=== PATIENT | female | born 1955 | race Caucasian/White ===

== ENCOUNTER 2016-10-26 12:11 | Emergency (ER) | payer OTHER ==
--- NOTE | ~2016-10-26 | CT71 ---
[facility] A Service of [facility] RADIOLOGY TEXT RESULTS PATIENT: OSCAR HUDSON LOCATION: [facility] : 55 UNIT #: [id number] AGE: [address]: Marcos Villalobos MD SEX: F ORDER DR: [id number] [address] [place], [place] [address] [id number] MR#: [id number] Acc #: [id number] NAME: OSCAR HUDSON : 1955 SEX: F STUDY DATE/TIME: 10/26/2016 12:28 UNIT: [facility] ROOM: STUDY DESCRIPTION: CT Head Wo Contrast Attending Physician: Marcos Villalobos M.D. Ordering Physician: Marcos Villalobos M.D. MEDICAL IMAGING REPORT This report is preliminary unless electronic signature is present EXAM CT head without contrast. INDICATIONS Headache for [address] head without contrast. This CT exam was performed with one or more of the following radiation dose reduction techniques: automatic exposure control, adjustment of mA and/or kV according to patient size, and iterative reconstruction. COMPARISON CT head dated 05/07/2016. FINDINGS Axial noncontrast images were obtained from the skull base to the vertex. Ventricular size and configuration are normal. There is no evidence of acute infarct or hemorrhage. There are no extra-axial fluid collections. No mass lesion or mass effect is seen. There are no skull fractures. Extraaxial mass associated with cavernous sinus is unchanged from prior study. Old lacunar infarct in the left thalamus is unchanged. IMPRESSION Normal noncontrast head CT. Dictated by... Kaiden Rivera M.D. THIS IS AN ELECTRONICALLY VERIFIED REPORT Kaiden Rivera M.D. at 10/30/2016 9:40 AM RPC/huey [facility] A Service [facility] RADIOLOGY TEXT RESULTS PATIENT: OSCAR HUDSON LOCATION: [facility] : 55 UNIT #: [id number] AGE: [address]: Marcos Villalobos MD SEX: F ORDER DR: TD: 10/26/2016 14:22 JOB #: [id number] MEDICAL IMAGING REPORT Page 1 of 1 COPY
[~2016-10-26 12:11] MED LIST: ACETAMINOPHEN PO; ADVAIR DISKU1 250/50 INH; ADVAIR PO; ALBUTEROL17 GM INH; AMITRIPTYLINE H25 MG PO; AMITRYPTYLINE PO; ASPERDRINK81 MG PO; ASPIRIN EC81 M1 PO; ASPIRIN ENTERI325 M1 DOB; ASPIRIN PO; ASPIRIN325 M1 PO; ASPIRIN81 M2 PO; ASPIRIN81 MG PO; ASPIRINEC PO; AZITHROMYCIN250 MG PO; BAYER CHEWABLE81 MG PO; BISACODYL5 MG PO; CALCIUM 500 + D1 TAB PO; CALCIUM 500 +1 EAC2 PO; CALCIUM 500 +1 EAC5 PO; CALTRATE 600+D PO; CERTAGEN PO; CLOPIDOGREL75 MG PO; COATED ASPIRIN325 M1 PO; COLACE PO; COZAAR PO; COZAAR25 MG PO; DARVOCET-N 1001 TAB PO; DECADRON PO; DEXAMETHASONE1 MG PO; DOC-Q-LACE100 MG PO; DOCU SOFT100 M1 PO; DOCUSATE SODIU100 MG PO; DULCOLAX5 MG PO; ECOTRIN81 M1 PO; FAMOTIDINE PO; FLEXERIL10 M1 PO; HYDROCHLOROTH12.5 M1 PO; HYDROCODON-ACE1 EAC7 PO; HYDROCODON-ACE1 EACH PO; HYDROXYZINE HCL25 M1 PO; IMDUR-ER60 M1 PO; IMDUR-ER60 MG DOB; IMDUR-ER60 MG PO; IMDUR30 MG PO; INDOMETHACIN50 MG PO; KETOPROFEN PO; KLONOPIN1 MG PO; LEVAQUIN PO; LIPITOR40 MG PO; LISINOPRIL5 MG PO; LOPRESSOR PO; LORTAB 5/500 TA1 TA1 PO; LOSARTAN POTASS50 MG PO; MACROBID100 MG PO; MEDROL4 MG/DOSE- PO; MELOXICAM15 MG PO; METOPROLOL SUCC25 MG PO; METOPROLOL TAR25 MG PO; METOPROLOL TART25 MG PO; MICROZIDE12.5 M1 PO; MOBIC PO; MOBIC15 MG PO; MOTRIN100 MG PO; MOTRIN600 MG PO; NAPROSYN250 M1 PO; NAPROSYN500 MG PO; NAPROXEN SODIU275 MG PO; NICOTINE TRANSDE7 MG EXT; NITRODISC0.4 MG SL; NITROGLYGERIN0.4 MG SL; NITROSTAT0.4 MG SL; NORCO 5/325 TAB1 TAB PO; NORVASC PO; NORVASC10 MG PO; PATIENT'S PHARMACY; PERCOCET 5-3251 TAB PO; PLAVIX PO; PRAVACHOL PO; PRAVACHOL20 MG PO; PRAVASTATIN SOD20 MG PO; PRAVASTATIN SOD40 MG PO; PREDNISONE5 M1 DOB; PRILOSEC20 MG PO; RANEXA1000 MG PO; RANEXA500 MG PO; REGLAN10 MG PO; ROBAXIN 750750 MG DOB; SENEXON-S TABL1 EACH PO; SENNA S TABLET1 TAB PO; SENNA8.6 M2 PO; SENNA8.6 M3 PO; SIMVASTATIN5 MG; SOF-LAX100 MG PO; SYMBICORT80 INH; TESSALON200 MG PO; TYLENOL #3 PO; TYLOX1 CAP 5/50 PO; VICODIN 5/500 T1 TAB PO; ZITHROMAX1 G/PKT PO; ZOCOR PO; ZOCOR20 MG PO; ZOFRAN PO; ZYPREXA2.5 MG PO
== END 2016-10-26 14:36 | disposition home or self-care (01) ==
LOC: CED 12:11
DX: R51 Headache (principal); G89.29 Other chronic pain; F32.9 Major depressive disorder, single episode, unspecified; E78.5 Hyperlipidemia, unspecified; F17.200 Nicotine dependence, unspecified, uncomplicated; Z86.73 Personal history of transient ischemic attack (TIA), and cerebral infarction without residual deficits
CPT/HCPCS: 70450; 99284

== ENCOUNTER 2017-03-15 10:58 | Observation (INO) | payer OTHER ==
[~2017-03-15] VITALS: Ht 149.9 cm; Wt 46.6 kg
--- NOTE | ~2017-03-15 | EKG ---
PATIENT: SOCAR HUDSON UNIT #: [id number] Ventricular Rate: 43 BPM Atrial Rate: 43 BPM P-R Interval: 160 ms QRS Duration: 72 ms Q-T Interval: 460 ms QTC Calculation(Bezet): 388 ms P [place]: 55 degrees Calculated R [place]: 36 degrees Calculated T [place]: 59 degrees Diagnosis Line: Marked sinus bradycardia Diagnosis Line: Abnormal ECG Diagnosis Line: When compared with ECG of 16-JUL-2016 11:13, Diagnosis Line: No significant change was found Diagnosis Line: Confirmed by JACKI LUGO MD ([id number]) on 03/15/2017 Diagnosis Line: 5:31:39 PM INTERPRETING MD: BRITTNEY UPTON
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
--- NOTE | ~2017-03-15 | DS ---
Unit #: [id number] #: [id number] Patient: OSCAR HUDSON [id number] [facility]. [address] [address] [id number] I MR#: [id number] NAME: OSCAR HUDSON ROOM: 314 Age: 62 Sex: F Admission Date: 03/15/2017 : 1955 Discharge Date: 03/16/2017 Attending Physician: Norman Marion M.D. Primary Care Physician: Generic Doctor Not In System DISCHARGE SUMMARY PRINCIPAL DISCHARGE DIAGNOSES 1. Transient ischemic attack. 2. History of cerebrovascular accident in the past. 3. History of pontine infarct. 4. History of the left cavernous sinuses extending back along the petroclinoid ligament. 5. Hypertension. 6. Hyperlipidemia. 7. Coronary artery disease status post stent placement x3. IMAGING STUDIES CT scan of the head and MRI. HOSPITAL COURSE This is a 62-year-old female who presented to the emergency room with left-sided weakness of her face as well as some left upper and lower extremity but she has no weakness. She had no nausea, vomiting, chills. No headaches. She had a CT scan of the head done which showed no acute infarct. MRI of the brain with and without contrast showed the left cavernous sinus meningioma which has been stable from the previous study as well as pontine infarct which is old. No acute infarcts were noted. The patient has clinically no evidence of any neurological weaknesses or any CVA at this point. However, the patient does have elevated blood pressure and, on her lipid study, did show LDL is 235. It seems like she has not been very compliant with her medicines. I am not sure she has been taking her Plavix and aspirin either at home. The patient is stable at this time to be discharged home. MEDICATION AT DISCHARGE 1. Losartan 50 mg daily. 2. Aspirin 81 mg daily. 3. Metoprolol 25 mg b.i.d. 4. Plavix 75 mg daily. 5. Atorvastatin 40 mg daily. 6. Meloxicam 7.5 mg daily. 7. Hydroxyzine 25 mg daily. CONDITION AT DISCHARGE Stable. DISPOSITION To home. Note, I had a lengthy discussion with the patient about need for taking Unit #: [id number] #: [id number] Patient: YOUNG,OSCAR all her medications regularly including her blood pressure control and her lipid control. She will follow up with primary care physician as an outpatient in one week. I discussed with patient to make an appointment with Dr. Galloway for further studies as an outpatient. Thanks again for consultation. Dictated by... Gianna Gordon/saida TD: 03/19/2017 08:17 JOB #: [id number] DISCHARGE SUMMARY Page 1 of 1 X Norman Marion MD X DISCHARGE SUMMARY
--- NOTE | ~2017-03-15 | CR72 ---
[facility] A Service of [facility] RADIOLOGY TEXT RESULTS PATIENT: OSCAR HUDSON LOCATION: [facility] 314-01 : 55 UNIT #: [id number] AGE: [address]: Norman Marion MD SEX: F ORDER DR: [id number] [facility] [address] [place], [place] [address] [id number] I MR#: [id number] Acc #: [id number] NAME: OSCAR HUDSON : 1955 SEX: F STUDY DATE/TIME: 03/15/2017 11:32 [facility] STUDY DESCRIPTION: CR Chest Single View Portable Attending Physician: Dionna Rosales M.D. Ordering Physician: Abdifatah Doyle M.D. Primary Care Physician: Generic Doctor Not In System MEDICAL IMAGING REPORT This report is preliminary unless electronic signature is present EXAM AP radiograph of the chest, 03/15/2017 HISTORY Numbness. Left-sided numbness started this a.m. Two prior strokes. Two DC's. COPD, brain tumor. Heart stents x3 TECHNIQUE AP radiograph of the chest is presented. Comparison 07/16/2016. FINDINGS Degenerative changes in the spine. Old healed posterolateral left rib fractures. Stable appearance. No acute-appearing bony abnormality. Stable cardiac enlargement. Evidence of prior coronary artery stenting. The lungs are hyperinflated suggesting underlying chronic airway disease. There is no evidence of acute infectious or inflammatory disease, pleural effusion or pneumothorax. No suspicious nodule. Dictated by... Kulwinder Austin M.D. THIS IS AN ELECTRONICALLY VERIFIED REPORT Kulwinder Austin M.D. at 03/18/2017 12:58 PM RADHA/danii TD: 03/16/2017 00:14 JOB #: [id number] MEDICAL IMAGING REPORT Page 1 of 1 COPY
--- NOTE | ~2017-03-15 | CT71 ---
[facility] A Service of [facility] & [facility] RADIOLOGY TEXT RESULTS PATIENT: OSCAR HUDSON LOCATION: [facility] 314-01 : 55 UNIT #: [id number] AGE: [address]: Norman Marion MD SEX: F ORDER DR: [id number] [facility] [address] [place], [place] [address] [id number] I MR#: [id number] Acc #: [id number] NAME: OSCAR HUDSON : 1955 SEX: F STUDY DATE/TIME: 03/15/2017 11:59 UNIT: A PCU ROOM: [facility] STUDY DESCRIPTION: CT Head Wo Contrast Attending Physician: Dionna Rosales M.D. Ordering Physician: Abdifatah Doyle M.D. Primary Care Physician: Generic Doctor Not In System MEDICAL IMAGING REPORT This report is preliminary unless electronic signature is present EXAM CT of the head without contrast. INDICATIONS Left-sided numbness and weakness. This started this morning. This patient has a history of a meningioma centered in the left cavernous sinus. TECHNIQUE Axial CT images were obtained from the vertex of the skull through the skull base. No intravenous contrast material was administered. This CT exam was performed with one or more of the following radiation dose reduction techniques: automatic exposure control, adjustment of mA and/or kV according to patient size, and iterative reconstruction. COMPARISON Comparison made to prior exam from October 26, 2016. FINDINGS No acute intracranial hemorrhage is identified. Brain parenchyma is normal in attenuation with no focal areas of decreased attenuation seen. There is no midline shift or mass effect. No new areas of decreased attenuation are identified. Patient does have an area of decreased attenuation within the ira which appears stable when compared to the October 26, 2016, examination. Again, this patient has a known mass centered on the left cavernous sinus, favored to be a meningioma. Based upon prior imaging, its appearance is stable when compared to the October 26, 2016, examination. No new lesions are seen. Patient does have deformity of the nasal bones which appears to be chronic. No acute fractures are identified. No focal soft tissue abnormalities are seen. IMPRESSION 1. No acute intracranial process is identified. Specifically, there is no evidence of acute hemorrhage or acute infarct. Patient has a STS. [facility] A Service of [facility] & [facility] RADIOLOGY TEXT RESULTS PATIENT: OSCAR HUDSON LOCATION: [facility] 314-01 : 55 UNIT #: [id number] AGE: [address]: Norman Marion MD SEX: F ORDER DR: known meningioma which is centered on the left cavernous sinus, its appearance I think is stable when compared to the prior studies. No new lesions are seen on today's examination. 2. Old nasal bone fractures. See the body of the report for any other additional incidental findings. Dictated by... Lissett Espinoza M.D. THIS IS AN ELECTRONICALLY VERIFIED REPORT Lissett Espinoza M.D. at 03/27/2017 8:21 AM PABLO/prateek TD: 03/16/2017 00:06 JOB #: [id number] MEDICAL IMAGING REPORT Page 1 of 1 COPY
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
--- NOTE | ~2017-03-15 | MR17 ---
[facility] A Service of [facility] RADIOLOGY TEXT RESULTS PATIENT: OSCAR HUDSON LOCATION: [facility] 314-01 : 55 UNIT #: [id number] AGE: [address]: TONNY ZIEGLER MD SEX: F ORDER DR: [id number] [facility] [address] [place], [place] [address] [id number] I MR#: [id number] Acc #: [id number] NAME: OSCAR HUDSON : 1955 SEX: F STUDY DATE/TIME: 03/15/2017 18:31 UNIT: A U ROOM: [facility] STUDY DESCRIPTION: MR Brain WWo Contrast Attending Physician: Tonny Ziegler M.D. Ordering Physician: [facility] REPORT This report is preliminary unless electronic signature is present. EXAM Brain MRI with without contrast HISTORY Paresthesias, onset today, involving left arm face and leg with numbness. Previous history of strokes. Additional history of brain tumor. COMPARISON STUDIES Comparison scan 05/06/2013 TECHNIQUE Multiplanar imaging brain was performed with and without contrast. 10 mL of MultiHance was used. FINDINGS On diffusion weighted images, there is no evidence of abnormal restricted diffusion to suggest a recent infarct. The routine brain images show a chronic mid-pontine infarct just to the left of midline with encephalomalacia. Although it appears chronic in its architecture, it is new since the previous scan in 2012. Mild chronic ischemic changes are seen in the periventricular deep white matter bilaterally accompanied by mild generalized atrophy. A meningioma is again seen along the left side of the sella turcica and left cavernous sinus extending back along the petroclinoid ligament and along the inferior aspect of the tentorium. This is unchanged from the previous scan. No new lesions are seen. IMPRESSION 1. Stable left cavernous sinus meningioma extending back along the tentorium and petroclinoid ligament. 2. Chronic left paracentral pontine infarct. Although chronic, it is new since the previous scan in 2012. 3. No evidence of a recent infarct or any acute abnormality. [facility] A Service of [facility] RADIOLOGY TEXT RESULTS PATIENT: OSCAR HUDSON LOCATION: [facility] 314-01 : 55 UNIT #: [id number] AGE: [address]: TONNY ZIEGLER MD SEX: F ORDER DR: STAT * RESULT Dictated by... Marcos Henderson M.D. THIS IS AN ELECTRONICALLY VERIFIED REPORT Marcos Henderson M.D. at 03/15/2017 10:07 PM KERRY/latanya TD: 03/15/2017 19:44 JOB #: [id number] [facility] REPORT Page 1 of 1 COPY
[2017-03-15 11:32] LABS: BASOPHIL# 0.1 X10e3 (0-0.3); BASOPHIL% 1.4 % (0-2.5); EOSINOPHIL# 0.2 X10e3 (0-0.7); EOSINOPHIL% 2.5 % (0.0-7.0); HEMATOCRIT 39.9 % (35.0-45.0); HEMOGLOBIN 13.2 gm/dL (12.0-16.0); LYMPHOCYTE# 2.4 X10e3 (1.0-3.5); LYMPHOCYTE% 34.4 % (17.0-45.0); MEAN CELL VOLUME 89.6 FL (83-96); MEAN CORPUSCULAR HEMOGLOBIN 29.5 PG (28-34); MEAN PLATELET VOLUME 8.4 FL (6.5-11.5); MONOCYTE# 0.6 X10e3 (0-1.0); MONOCYTE% 8.4 % (3.0-12.0); NEUTROPHIL# 3.7 X10e3 (1.5-7.1); NEUTROPHIL% 53.3 % (40-75); PLATELET COUNT 305 X10e3 (140-420); RED BLOOD COUNT 4.46 X10e (3.90-5.30); RED CELL DISTRIBUTION WIDTH 14.6 % (11.0-15.5)
[2017-03-15 11:34] LABS: DIFF IND NO
[2017-03-15 11:44] LABS: PROTHROMBIN TIME (PATIENT) 10.7 SECONDS (10.0-11.7)
[2017-03-15 12:00] LABS: ALBUMIN SERUM 4.3 g/dL (3.5-5.0); BILIRUBIN, DIRECT 0.1 mg/dL (0.0-0.2); BILIRUBIN,INDIRECT 0.5 mg/dL (0.0-0.9); BILIRUBIN,TOTAL 0.6 mg/dL (0.2-2.0); BUN/CREATININE RATIO 13.33; CALCIUM SERUM 9.2 mg/dL (8.4-10.2); CREATININE SERUM 0.9 mg/dL (0.6-1.4); GLOM FILT RATE Estimated 68.6 mL/min (>60); POTASSIUM 4.2 mmol/L (3.5-5.1); PROTEIN TOTAL SERUM 7.6 g/dL (6.0-8.3)
[2017-03-15 12:17] LABS: POC - CKMB 1.3 ng/mL (0.0-7.9); POC - TROPONIN <0.05 ng/mL (<=0.05)
[2017-03-15 12:52] LABS: URINE SOURCE CLEAN CATCH
[2017-03-15 12:57] LABS: URINE APPEARANCE CLEAR; URINE BILIRUBIN NEG (NEG); URINE BLOOD NEG (NEG); URINE COLOR YELLOW; URINE GLUCOSE NEG (NEG); URINE KETONE NEG (NEG); URINE LEUKOCYTE ESTERASE 2+ (NEG); URINE NITRATE NEG (NEG); URINE PROTEIN NEG (NEG); URINE SPECIFIC GRAVITY 1.012 (1.003-1.035); URINE UROBILINOGEN 0.2 MG/DL (NEG)
[2017-03-15 13:01] LABS: URBCS1 AUWI 0-2 /[HPF] (0-2); URINE BACTERIA AUWI NEG (NEGATIVE); URINE SQUAMOUS EPITHELIAL CELL NONE SEEN /[HPF]
[2017-03-15 13:14] LABS: CULTURE INDICATED? NO
[2017-03-15 13:15] LABS: URINE MUCUS PRESENT
[2017-03-15] MEDS ORDERED: MELOXICAM7.5 MG PO (15:47)
[2017-03-15] MEDS ORDERED: METOPROLOL TAR25 MG PO (15:48)
[2017-03-15] MEDS ORDERED: HYDROXYZINE HCL25 M1 PO (15:48)
[2017-03-15] MEDS ORDERED: CLOPIDOGREL75 MG PO (15:49)
[2017-03-15] MEDS ORDERED: LOSARTAN POTASS50 MG PO (15:49)
[2017-03-15] MEDS ORDERED: ASPIRIN81 MG PO (15:49)
[2017-03-15] MEDS ORDERED: NITROGLYCERIN0.4 MG SL (15:50)
[2017-03-16 05:18] LABS: HEMATOCRIT 38.2 % (35.0-45.0); HEMOGLOBIN 12.6 gm/dL (12.0-16.0); MEAN CELL VOLUME 89.5 FL (83-96); MEAN CORPUSCULAR HEMOGLOBIN 29.5 PG (28-34); MEAN PLATELET VOLUME 8.1 FL (6.5-11.5); RED BLOOD COUNT 4.27 X10e (3.90-5.30); RED CELL DISTRIBUTION WIDTH 14.8 % (11.0-15.5); WHITE BLOOD COUNT 7.1 X10e3 (4.0-10.5)
[2017-03-16 06:12] LABS: BUN/CREATININE RATIO 15.55; CALCIUM SERUM 9.2 mg/dL (8.4-10.2); CREATININE SERUM 0.9 mg/dL (0.6-1.4); GLOM FILT RATE Estimated 68.6 mL/min (>60); POTASSIUM 4.2 mmol/L (3.5-5.1)
[2017-03-16] MEDS ORDERED: LIPITOR40 MG PO (12:04)
== END 2017-03-16 14:20 | disposition home or self-care (01) ==
LOC: CED 10:58 → CEDOF 13:45 → CED 14:02 → CEDOF 14:02 → C3A PCU 14:51
PROVIDERS: Emergency Medicine; Internal Medicine
DX: G45.9 Transient cerebral ischemic attack, unspecified (principal); I25.10 Atherosclerotic heart disease of native coronary artery without angina pectoris; I10 Essential (primary) hypertension; J44.9 Chronic obstructive pulmonary disease, unspecified; M10.9 Gout, unspecified; F41.9 Anxiety disorder, unspecified; F17.210 Nicotine dependence, cigarettes, uncomplicated; Z85.841 Personal history of malignant neoplasm of brain; Z83.3 Family history of diabetes mellitus; Z88.6 Allergy status to analgesic agent
CPT/HCPCS: 36415; 70450; 70553; 71010; 80048; 80061; 80076; 81003; 82553; 82947; 84484; 85025; 85027; 85610; 86140; 93005; 96374; 97162; 97166; 99285; A9577; G0378; G8978-GP; G8979-GP; G8980-GP; G8987-GO; G8988-GO; G8989-GO; J0360